=== PATIENT | male | born 1950 | race Caucasian/White ===

== ENCOUNTER → 2021-08-12 | Outpatient (CLI) | payer OTHER ==
[2021-08-12 10:11] LABS: CREATININE 1.2 mg/dL (0.7-1.3)
== END ==
LOC: EDSEX → SJCVC 09:33 → CAT 09:33
PROVIDERS: ATTEND Nuclear Medicine Nuclear Cardiology
DX: Z01.812 Encounter for preprocedural laboratory examination (principal); K76.9 Liver disease, unspecified; I77.811 Abdominal aortic ectasia; I71.4 Abdominal aortic aneurysm, without rupture; E78.00 Pure hypercholesterolemia, unspecified; I25.10 Atherosclerotic heart disease of native coronary artery without angina pectoris; N40.0 Benign prostatic hyperplasia without lower urinary tract symptoms; Z82.49 Family history of ischemic heart disease and other diseases of the circulatory system; Z87.891 Personal history of nicotine dependence; Z72.89 Other problems related to lifestyle